=== PATIENT | female | born 1975 | race Caucasian/White ===

== ENCOUNTER 2024-06-27 01:07 | Inpatient (IN) | payer SELFPAY ==
[~2024-06-27] VITALS: Ht 170.2 cm; Wt 109.0 kg
[2024-06-27] MEDS ORDERED: ONDANSETRON HCL 4MG/2ML INJ IV STA (02:00)
[2024-06-27] MEDS ORDERED: FAMOTIDINE 20MG/2ML VIAL IV STA (02:00)
[2024-06-27] MEDS ORDERED: MORPHINE SULFATE 4 MG/ML INJ (FOR IV/IM USE) IV STA (02:00)
[2024-06-27 04:32] LABS: BASOPHILS % 0.3 % (0.0-2.0); EOSINOPHILS % 0.3 % (0.0-5.0); HEMATOCRIT. 42.8 % (36.0-48.0); HEMOGLOBIN. 14.4 g/dL (12.0-16.0); LYMPHOCYTES % 25.9 % (20.0-50.0); MEAN CORPUSCULAR HEMOGLOBIN 30.1 pg (28.0-32.0); MEAN CORPUSCULAR HGB CONC 33.5 g/dL (31.0-37.0); MEAN CORPUSCULAR VOLUME 89.8 fL (81.0-99.0); MONOCYTES % 8.4 % (2.0-8.0); NEUTROPHILS % 65.1 % (40.0-76.0); PLATELET 238 x1000/uL (130-400); RED BLOOD CELL COUNT 4.77 mill/uL (4.2-5.4); RED CELL DISTRIBUTION WIDTH 13.5 % (11.6-14.6); WHITE BLOOD COUNT 8.4 x1000/uL (4.5-11.0)
[2024-06-27] MEDS: SODIUM CHLORIDE 0.9% 1,000 ML IV ONE (04:38)
[2024-06-27] MEDS: FAMOTIDINE 20MG/2ML VIAL IV NR (04:41)
[2024-06-27] MEDS: ONDANSETRON HCL 4MG/2ML INJ IV NR (04:41)
[2024-06-27 04:42] LABS: CHLORIDE 104 mEq/L (98-107); POTASSIUM 3.4 mEq/L (3.5-5.1); SODIUM 140 mEq/L (136-145)
[2024-06-27] MEDS: MORPHINE SULFATE 4 MG/ML INJ (FOR IV/IM USE) IV NR (04:42)
[2024-06-27 04:43] LABS: CALCIUM 9.6 mg/dL (8.7-10.4); CARBON DIOXIDE 26 mEq/L (21-32)
[2024-06-27 04:48] LABS: CREATININE 0.5 mg/dL (0.6-1.0); GLUCOSE 113 mg/dL (70-105); UREA NITROGEN BLOOD 7 mg/dL (9-23)
[2024-06-27 04:50] LABS: ALANINE AMINOTRANSFERASE 191 IU/L (10-49); ALBUMIN 4.4 g/dL (3.2-4.8); ASPARTATE AMINOTRANSFERASE 145 IU/L (<34); BILIRUBIN DIRECT 0.1 mg/dL (<=3.0)
[2024-06-27 04:51] LABS: BILIRUBIN TOTAL 0.4 mg/dL (0.1-1.0); PROTEIN TOTAL 8.5 g/dL (6.0-8.3)
[2024-06-27 05:40] LABS: LACTIC ACID 2.1 mmol/L (0.4-2.0)
[2024-06-27 08:00] VITALS: BP 126/64; PULSE 89; RESP 16; TEMP 37.2; O2SAT 98
[2024-06-27] MEDS: FAMOTIDINE 20MG TABLET PO SCH (10:59)
[2024-06-27] MEDS: POTASSIUM CHLORIDE 20MEQ TABLET SR PO NR (10:59)
[2024-06-27 12:00] VITALS: BP 113/70; PULSE 82; RESP 16; TEMP 37.1; O2SAT 99
[2024-06-27 15:43] VITALS: BP 113/70; PULSE 82; TEMP 98; O2SAT 99
[2024-06-27] MEDS: ONDANSETRON HCL 4MG TABLET PO PRN (16:16)
== END 2024-06-27 17:00 | disposition home or self-care (01) | DRG 241 ==
LOC: ER 01:07 → 6EST 04:22 → EDBEDREQTM 04:28 → EDBEDREQ 04:28
PROVIDERS: ADMIT Internal Medicine; ATTEND Internal Medicine
DX: K29.20 Alcoholic gastritis without bleeding (principal); E11.9 Type 2 diabetes mellitus without complications; E66.9 Obesity, unspecified; Z90.49 Acquired absence of other specified parts of digestive tract; Z85.41 Personal history of malignant neoplasm of cervix uteri; Z90.710 Acquired absence of both cervix and uterus; Z68.37 Body mass index [BMI] 37.0-37.9, adult
CPT/HCPCS: 36415; 74176; 76705; 80048; 80076; 83605; 85025; 99285; J2270; J2405; J3490; J7030; Q0162